=== PATIENT | male | born 1965 | race Caucasian/White ===

== ENCOUNTER 2019-12-08 09:59 | Emergency (ER) | payer OTHER ==
[2019-12-08 10:23] VITALS: BP 124/69
--- NOTE | 2019-12-08 10:44 | Emergency Department Report ---
ED General Adult HPI - General Chief complaint: Weakness Stated complaint: DIZZY/FEVER Time Seen by Provider: 12/08/19 10:24 Source: EMS Mode of arrival: Ambulatory Limitations: No Limitations - History of Present Illness Initial comments: 54-year-old male presents to ED with 3-day history of subjective fever, generalized weakness, decreased appetite. Patient denies nausea, vomiting, diarrhea. Patient is magnifiers generalized weakness. He denies cough or shortness of breath. He denies any recent travel. Patient states he has been taking NyQuil at home. Reports sick contacts at home, his friend and his friend's , but states they have gotten better. -: days(s) (3) Severity scale (0 -10): 2 Consistency: constant Improves with: none Worsens with: none Associated Symptoms: fever/chills, loss of appetite, weakness. denies: chest pain, cough, nausea/vomiting, shortness of breath Treatments Prior to Arrival: other (OTC meds) ED Review of Systems ROS: Stated complaint: DIZZY/FEVER Other details as noted in HPI Comment: All other systems reviewed and negative Constitutional: chills, fever Respiratory: denies: cough, shortness of breath Cardiovascular: denies: chest pain Gastrointestinal: denies: abdominal pain, nausea, vomiting, diarrhea Musculoskeletal: denies: myalgia ED Past Medical Hx - Past Medical History Previous Medical History?: No - Surgical History Past Surgical History?: No - Social History Smoking Status: Never Smoker Substance Use Type: None ED Physical Exam - General Limitations: No Limitations General appearance: alert, in no apparent distress - Head Head exam: Present: atraumatic, normocephalic - Eye Eye exam: Present: normal appearance, EOMI - ENT ENT exam: Present: mucous membranes moist - Neck Neck exam: Present: normal inspection - Respiratory Respiratory exam: Present: normal lung sounds bilaterally. Absent: respiratory distress - Cardiovascular Cardiovascular Exam: Present: regular rate, normal rhythm - GI/Abdominal GI/Abdominal exam: Present: soft. Absent: distended, tenderness - Extremities Exam Extremities exam: Present: normal inspection - Neurological Exam Neurological exam: Present: alert, oriented X3 - Psychiatric Psychiatric exam: Present: normal affect, normal mood - Skin Skin exam: Present: warm, dry, intact, normal color ED Course Vital Signs 03/16/20 03/16/20 10:19 12:02 Temperature 99.6 F Pulse Rate 61 Respiratory 16 18 Rate Blood Pressure 124/69 Blood Pressure 124/69 [Right] O2 Sat by Pulse 98 98 Oximetry ED Medical Decision Making - Medical Decision Making - reports subjective fever, generalized weakness - flu negative - afebrile here in ED, remainder of vitals normal - low suspicion for COVID, however, advised pt to self-quarantine - will d/c home at this time - return precautions given - Differential Diagnosis flu, viral illness Critical care attestation.: If time is entered above; I have spent that time in minutes in the direct care of this critically ill patient, excluding procedure time. ED Disposition Clinical Impression: Generalized weakness, Febrile illness Disposition: DC-01 TO HOME OR SELFCARE Is pt being admited?: No Condition: Stable Instructions: Fever in Adults (ED), Viral Syndrome (ED) Additional Instructions: Your flu test is negative. We are unable to test for coronavirus here in the ER at this time. Your vital signs signs are normal and you do not require admission to the hospital at this time. It is advised that you stay home, away from others, and self-quarantine for 14 days. Referrals: [facility] [Provider Group] - 3-5 Days COLTON JOHNSON DO [Staff Physician] - 3-5 Days HERNANDEZ PRINGLE MD [Staff Physician] - 3-5 Days [facility] [Outside] - 3-5 Days Forms: Work/School Release Form(ED) Time of Disposition: 11:28
== END 2019-12-08 12:04 | disposition home or self-care (01) ==
LOC: ED 09:59
DX: R53.1 Weakness (principal); R50.9 Fever, unspecified
CPT/HCPCS: 87400; 99283

== ENCOUNTER 2019-12-09 18:42 | Emergency (ER) | payer OTHER ==
[2019-12-09 19:21] VITALS: BP 100/64
--- NOTE | 2019-12-09 19:53 | Emergency Department Report ---
ED Rash HPI - HPI Chief Complaint: Skin Rash Stated Complaint: BUMPS ON ARM Time Seen by Provider: 12/09/19 19:47 Duration: 3 Days Location: Upper Extremities Suspected Cause: Medication, Other (Or Band-Aid) Rash Symptoms: Yes Itching, Yes Blistering, No Tongue/Oral Swelling, No Breathing Difficulties, No Choking Sensation, No Wheezing/Dyspnea, No Peeling, No Fever, No Lightheaded, No Malaise, No Myalgias Severity: mild ED Review of Systems ROS: Stated complaint: BUMPS ON ARM Other details as noted in HPI Comment: All other systems reviewed and negative ED Past Medical Hx - Social History Smoking Status: Never Smoker Substance Use Type: Alcohol - Medications Home Medications: Home Medications Medication Instructions Recorded Confirmed Last Taken Type Mometasone Furoate [Elocon] 0.5 gm TP BID #15 oint...g. 12/09/19 Unknown Rx hydrOXYzine HCL [Atarax] 25 mg PO Q6HR PRN #20 tablet 12/09/19 Unknown Rx Rash Exam - Exam General: Vital signs noted. No distress. Alert and acting appropriately. HEENT: No Periorbital Edema, No Conjuctival Injection, No Chemosis, No Perioral Edema, No Tongue Edema, No Uvular Edema, No Compromised Airway, No Drooling Lungs: Yes Good Air Exchange (Normal Breath Sounds), No Wheezes, No Ronchi, No Stridor, No Cough, No Labored Respirations, No Retractions, No Use of Accessory Muscles, No Other Abnormal Lung Sounds Heart: Yes Regular, No Murmur Skin: Yes Urticarial Rash (To the right antecubital fossa in the area with a Band-Aid was located), Yes Maculopapular Rash, No Weeping, No Tenderness, No Edema, No Encrustations Other: Positive: Abdomen Normal, Neurologic Normal, Musculoskeletal Normal ED Course Vital Signs 12/09/19 19:20 Temperature 99.1 F Pulse Rate 85 Respiratory 15 Rate Blood Pressure 100/64 [Right] O2 Sat by Pulse 99 Oximetry Critical care attestation.: If time is entered above; I have spent that time in minutes in the direct care of this critically ill patient, excluding procedure time. ED Disposition Clinical Impression: Contact dermatitis, Allergic reaction Disposition: TO HOME OR SELFCARE Is pt being admited?: No Does the pt Need Aspirin: No Condition: Stable Instructions: Urticaria (ED) Prescriptions: hydrOXYzine HCL [Atarax] 25 mg PO Q6HR PRN #20 tablet PRN Reason: Itching Mometasone Furoate [Elocon] 0.5 gm TP BID #15 oint...g. Referrals: [facility] [Provider Group] - 3-5 Days
== END 2019-12-09 20:20 | disposition home or self-care (01) ==
LOC: ED 18:42
DX: L30.9 Dermatitis, unspecified (principal); T78.40XA Allergy, unspecified, initial encounter; X58.XXXA Exposure to other specified factors, initial encounter
CPT/HCPCS: 99282